=== PATIENT | male | born 1990 | race Caucasian/White ===

== ENCOUNTER 2017-10-17 13:06 | Emergency (ER) | payer MEDICAID, OTHER ==
[~2017-10-17] VITALS: Ht 152.4 cm; Wt 75.0 kg
[2017-10-17 13:14] VITALS: Ht 152.4 cm; Wt 75.0 kg
[2017-10-17] MEDS ORDERED: FLUC150T17 PO (15:08)
[2017-10-17] MEDS ORDERED: CLOT30CR24 TOP (15:08)
[2017-10-17] MEDS ORDERED: NASO17 NASAL (15:08)
[2017-10-17] MEDS ORDERED: CETI10CA PO (15:08)
--- NOTE | 2017-10-17 15:44 | ERD ---
ER Documentation Chief Complaint Chief Complaint FINGERS RASH/FUNGUS? HPI 27-year-old male comes in with bilateral finger showed dryness and started about a week ago. The patient describes much of symptoms drying and scaling to the fingertips as well. 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 He also reports nasal congestion, sore throat , itchy throat for the past 2 months. He denies any fevers, chills, drainage. ROS All systems reviewed and are negative except as per history of present illness. Medications Home Meds Active Scripts Mometasone Furoate* (Nasonex*) 50 Mcg/[place] - 17 Gm [place].pump, 1 SPRAY NASAL BID, #1 BOTTLE IN EACH NOSTRIL Prov:TABITHA GONZALEZ PA-C 10/17/17 Cetirizine Hcl* (Zyrtec*) 10 Mg Capsule, 10 MG PO DAILY, #30 TAB.CHEW Prov:TABITHA GONZALEZ PA-C 10/17/17 Clotrimazole* (Clotrimazole* AF) 1% - 30 Gm Cream.gm., 1 APPLIC TOP BID for 7 Days, TUB Prov:TABITHA GONZALEZ PA-C 10/17/17 Fluconazole* (Diflucan*) 150 Mg Tablet, 150 MG PO ONCE, #2 TAB Prov:TABITHA GONZALEZ PA-C 10/17/17 PMhx/Soc Medical and Surgical Hx: pt denies Medical Hx, pt denies Surgical Hx Hx Tobacco Use: No Physical Exam Vitals Vital Signs Date Time Temp Pulse Resp B/P Pulse Ox O2 Delivery O2 Flow Rate FiO2 10/17/17 13:14 98.4 77 20 144/73 97 Physical Exam General: Well-developed, well-nourished. The patient appears in no acute distress. HEENT: Head is normocephalic, atraumatic. No scleral icterus. Pupils are equal , round, and reactive. Oral mucous membranes are moist. No pharyngeal erythema. Neck: Supple. Nontender. Lungs: Clear to auscultation. Normal air movement. Heart: Regular rate and rhythm. S1 and S2 are normal. No murmurs, gallops, or rubs. Abdomen: Soft, nontender, nondistended. Bowel sounds are normoactive. Extremities: No clubbing or cyanosis. Normal pulses. Moving extremities x 4. No weakness. Neurologic: Alert and oriented 3. No focal deficits. Skin: Scaling and dryness to bilateral hands in the fingertips. Procedures/MDM 27-year-old male comes in with dermatitis to both hands, the patient likely has a fungal infection, will be treated with Lotrimin lotion as well as Diflucan to be taken twice. He will also be given Nasonex as well as Zyrtec, and patient symptoms are most consistent with allergic rhinitis. There are no signs of sinusitis, facial abscess, cellulitis. If the symptoms on hands do not improve the patient was advised he may need further evaluation from a patient service representative. Departure Diagnosis: Primary Impression: Rhinitis Additional Impression: Dermatitis Condition: Good Patient Instructions: Fungal Infection, Skin [General], Allergic Rhinitis TABITHA GONZALEZ PA-C Oct 17, 2017 15:44
== END 2017-10-17 15:45 | disposition home or self-care (01) ==
LOC: E/R 13:06
DX: J30.9 Allergic rhinitis, unspecified (principal); L30.9 Dermatitis, unspecified
CPT/HCPCS: 99283